=== PATIENT | female | born 1965 | race Caucasian/White ===

== ENCOUNTER 2021-10-20 11:33 | Observation (INO) | payer BC ==
[~2021-10-20] VITALS: Ht 167.6 cm; Wt 135.5 kg
[~2021-10-20 11:33] MED LIST: NO HOME MEDICATIONS; PERCOCET 325 MG1 TA2 PO
[2021-10-20 12:14] LABS: BASO # 0.2 K/mm3 (0.0-0.2); BASO % 1.7 % (0.0-2.0); EOS # 1.5 K/mm3 (0.0-0.7); EOS % 13.9 % (0.0-4.0); GRAN % 64.7 % (42.2-75.2); HEMOGLOBIN 10.6 g/dl (12.5-16.0); LYMPH # 1.3 K/mm3 (1.2-3.4); MEAN CELL VOLUME 75 fl (80.0-100.0); MEAN CORPUSCULAR HEMOGLOBIN 23 pg (27-31); MEAN CORPUSCULAR HGB CONC 30 g/dl (33.0-37.0); MEAN PLATELET VOLUME 8.5 fl (7.4-10.4); MONO # 0.8 K/mm3 (0.1-0.6); MONO % 7.3 % (1.7-9.3); PLATELET COUNT 396 K/mm3 (130-400); RED BLOOD COUNT 4.72 M/mm3 (4.10-5.30); REDCELL DISTRIBUTION WIDTH-CV 16.9 % (11.5-14.5)
[2021-10-20 12:18] LABS: HEMATOCRIT 35.4 % (37.0-47.0)
[2021-10-20 12:30] LABS: ALANINE AMINOTRANSFERASE 18 U/L (0-55); ALBUMIN 3.8 gm/dL (3.5-5.0); ALKALINE PHOSPHATASE 79 U/L (40-150); ANION GAP 12 mmol/L (7-16); AST,SGOT 17 U/L (5-34); BILIRUBIN,TOTAL 0.9 mg/dL (0.2-1.2); BLOOD UREA NITROGEN 6 mg/dL (10-20); CALCIUM 8.8 mg/dL (8.4-10.2); CARBON DIOXIDE 21 mmol/L (22-29); CHLORIDE 107 mmol/L (98-107); GLUCOSE 105 mg/dL (70-99); POTASSIUM 3.7 mmol/L (3.5-4.5); SODIUM 140 mmol/L (136-145); TOTAL PROTEIN 6.9 gm/dL (6.2-8.1)
[2021-10-20 12:38] LABS: TROPONIN-I < 0.010 ng/mL (0.00-0.033)
[2021-10-20] MEDS ORDERED: AMOXICILLIN875 MG PO (12:40)
[2021-10-20] MEDS ORDERED: ZITHROMAX 250M250 MG PO (12:40)
--- NOTE | 2021-10-20 14:30 | NUR ---
PT ADMITTED FROM ED WITH ASTMA. PT IS AXOX4. PT AMBULATED TO BED FROM WHEELCHAIR. PT ON 2L NC. VSS. PT DOES NOT APPEAR SOB AT THIS TIME. PT ORIENTED TO ROOM AND FLOOR. PT DENIES NEEDS AT THIS TIME. PT HAS CALL LIGHT WITHIN REACH.
[2021-10-20] MEDS ORDERED: CLARITIN 1010 MG/TAB PO (14:35)
[2021-10-20] MEDS ORDERED: ALBUTEROL S0.4 MG/ML PO (14:35)
[2021-10-20] MEDS ORDERED: PROAIR HFA0.09 MG/AC IH (14:35)
[2021-10-20 14:40] VITALS: BP 136/71; PULSE 82; TEMP 98
[2021-10-20 15:48] VITALS: BP 147/72; PULSE 86; TEMP 98
[2021-10-20 20:50] VITALS: BP 132/56; PULSE 95; TEMP 97.8
[2021-10-21 00:29] VITALS: BP 136/77; PULSE 90; TEMP 97.9
[2021-10-21 04:54] VITALS: BP 125/66; PULSE 73; TEMP 97.5
[2021-10-21 07:12] LABS: ALBUMIN 3.6 gm/dL (3.5-5.0); CREATININE, serum 0.65 mg/dL (0.57-1.11); MAGNESIUM 2.2 mg/dL (1.6-2.6); PHOSPHOROUS 3.3 mg/dL (2.3-4.7); POTASSIUM 3.8 mmol/L (3.5-4.5)
[2021-10-21 08:18] LABS: BASO % 0.2 % (0.0-2.0); GRAN # 7.5 K/mm3 (1.4-6.5); HEMOGLOBIN 10.8 g/dl (12.5-16.0); LYMPH # 0.9 K/mm3 (1.2-3.4); LYMPH % 10.4 % (20.0-51.0); MEAN CELL VOLUME 75 fl (80.0-100.0); MEAN CORPUSCULAR HEMOGLOBIN 22 pg (27-31); MEAN CORPUSCULAR HGB CONC 30 g/dl (33.0-37.0); MONO # 0.2 K/mm3 (0.1-0.6); MONO % 1.9 % (1.7-9.3); PLATELET COUNT 454 K/mm3 (130-400); RED BLOOD COUNT 4.88 M/mm3 (4.10-5.30); REDCELL DISTRIBUTION WIDTH-CV 17.2 % (11.5-14.5)
--- NOTE | 2021-10-21 08:20 | NUR ---
Patient is sitting in bed, after breakfast. Alert and oriented x 4, denies pain, sob, or cough this morning. At RA. Assessment completed, no other needs at this time. Call light within reach.
[2021-10-21 08:32] LABS: HEMATOCRIT 36.5 % (37.0-47.0)
[2021-10-21 08:49] VITALS: BP 138/55; PULSE 88; TEMP 97.8
[2021-10-21 11:56] VITALS: BP 120/68; PULSE 92; TEMP 98
--- NOTE | 2021-10-21 12:46 | NUR ---
SW met with patient to complete intake. Patient states that she lives in [facility] with Freddy Weaver [phone]. Patient provides that she does not utilize DME and is independent with ADL's. Patient states that she does not have a PCP, but has information already to obtain one, pharmacy is [facility]. Patient provides that she does not have a DPOA/HC and does not wish to appoint one at this time. Patient plans to return to her home upon DC. SW will continue to follow. DC plan: home
[2021-10-21] MEDS ORDERED: BREO ELLIPTA 21 EACH IH (13:35)
[2021-10-21] MEDS ORDERED: SPIRIVA RE2.5 MCG/Ac IH (13:36)
[2021-10-21] MEDS ORDERED: PROAIR HFA0.09 MG/AC IH (13:37)
[2021-10-21] MEDS ORDERED: PREDNISONE10 MG PO (13:39)
--- NOTE | 2021-10-21 16:21 | NUR ---
Pt was provided with DC information, IV discontinue, all questions answered. Pt leave room at 1620.
== END 2021-10-21 16:15 | disposition home or self-care (01) ==
LOC: COL.ER 11:33 → MEDICAL 13:12
PROVIDERS: Emergency Medicine; ADMIT Internal Medicine
DX: J96.01 Acute respiratory failure with hypoxia (principal); J45.901 Unspecified asthma with (acute) exacerbation; Z20.822 Contact with and (suspected) exposure to COVID-19; Z87.891 Personal history of nicotine dependence; Z79.899 Other long term (current) drug therapy
CPT/HCPCS: G0378; J2920; J2930; J7030; Q9967

== ENCOUNTER 2023-08-27 05:27 | Emergency (ER) | payer SELFPAY ==
[~2023-08-27] VITALS: Ht 165.1 cm; Wt 138.2 kg
[~2023-08-27 05:27] MED LIST changes: +ALBUTEROL S0.4 MG/ML PO; +AMOXICILLIN875 MG PO; +BREO ELLIPTA 21 EACH IH; +CLARITIN 1010 MG/TAB PO; +PREDNISONE10 MG PO; +PROAIR HFA0.09 MG/AC IH; +SPIRIVA RE2.5 MCG/Ac IH; +ZITHROMAX 250M250 MG PO
[2023-08-27 05:30] VITALS: TEMP 98.3
[2023-08-27] MEDS ORDERED: Albuterol/Ipratropium 3 MG-0.5 MG/3 ML Neb Soln IH SCH (05:45)
[2023-08-27] MEDS ORDERED: LR 1,000 ML IV ONE (06:00)
[2023-08-27 06:18] LABS: BASO # 0.2 K/mm3 (0.0-0.2); BASO % 1.9 % (0.0-2.0); EOS # 1.3 K/mm3 (0.0-0.7); EOS % 11.8 % (0.0-4.0); GRAN % 65.1 % (42.2-75.2); HEMATOCRIT 43.4 % (37.0-47.0); HEMOGLOBIN 13.4 g/dl (12.5-16.0); LYMPH # 1.5 K/mm3 (1.2-3.4); LYMPH % 14.2 % (20.0-51.0); MEAN CELL VOLUME 86 fl (80.0-100.0); MEAN CORPUSCULAR HEMOGLOBIN 27 pg (27-31); MEAN CORPUSCULAR HGB CONC 31 g/dl (33.0-37.0); MEAN PLATELET VOLUME 8.6 fl (7.4-10.4); MONO # 0.7 K/mm3 (0.1-0.6); MONO % 6.7 % (1.7-9.3); PLATELET COUNT 421 K/mm3 (130-400); RED BLOOD COUNT 5.06 M/mm3 (4.10-5.30); REDCELL DISTRIBUTION WIDTH-CV 15.9 % (11.5-14.5)
[2023-08-27 06:32] LABS: ALANINE AMINOTRANSFERASE 16 U/L (0-55); ALBUMIN 3.8 g/dL (3.5-5.0); ALKALINE PHOSPHATASE 90 U/L (40-150); ANION GAP 10 mmol/L (7-16); AST,SGOT 14 U/L (5-34); BILIRUBIN,TOTAL 0.7 mg/dL (0.2-1.2); BLOOD UREA NITROGEN 7 mg/dL (10-20); CALCIUM 9.2 mg/dL (8.4-10.2); CHLORIDE 108 mEq/L (98-107); CREATININE, serum 0.78 mg/dL (0.57-1.11); GLUCOSE 99 mg/dL (70-99); LIPASE 14 U/L (8-78); POTASSIUM 4.2 mEq/L (3.5-4.5); SODIUM 141 mEq/L (136-145); TOTAL PROTEIN 7.1 g/dl (6.2-8.1)
[2023-08-27 06:36] LABS: TROPONIN-I < 0.010 ng/mL (0.00-0.033)
[2023-08-27] MEDS ORDERED: TESSALON P100 MG/CAP PO (07:00)
[2023-08-27] MEDS ORDERED: PREDNISONE50 MG PO (07:00)
[2023-08-27] MEDS ORDERED: ZITHROMAX Z PA250 MG PO (07:00)
[2023-08-27 07:14] VITALS: BP 153/89; PULSE 87
== END 2023-08-27 07:18 | disposition home or self-care (01) ==
LOC: COL.ER 05:27
PROVIDERS: Emergency Medicine
DX: J20.9 Acute bronchitis, unspecified (principal); J45.909 Unspecified asthma, uncomplicated; Z88.1 Allergy status to other antibiotic agents
CPT/HCPCS: J7120